=== PATIENT | male | born 1980 | race Caucasian/White ===

== ENCOUNTER 2019-02-17 04:58 | Day surgery (SDC) | payer OTHER ==
[2019-02-16 11:30] VITALS: BMI 31.1
[2019-02-17] MEDS ORDERED: KETOROLAC TROMETHAMINE 30 MG/1 ML VIAL ONE ×2 (08:37→09:49)
[2019-02-17] MEDS ORDERED: DEXAMETHASONE SOD PHOSPHATE 4 MG/1 ML VIAL ONE (08:37)
[2019-02-17] MEDS ORDERED: LIDOCAINE HCL/PF 2% SDV 5ML VIAL ONE (08:37)
[2019-02-17] MEDS ORDERED: MIDAZOLAM HCL 2 MG/2 ML SINGLE DOSE VIAL ONE (08:38)
[2019-02-17] MEDS ORDERED: PROPOFOL 20 ML ONE ×3 (08:38→09:50)
--- NOTE | 2019-02-17 09:01 | HP ---
[facility] - Chief Complaint Chief Complaint: right knee pain History Source: Patient - Past Medical History Allergies/Adverse Reactions: Allergies Allergy/AdvReac Type Severity Reaction Status Date / Time Penicillins Allergy Intermediate Hives Verified 02/17/19 08:44 - Current Medications Current Medications: Home Medications Medication Instructions Recorded Ibuprofen 800 mg PO DAILY 02/16/19 Ranitidine HCl [Zantac] 150 mg PO DAILY 02/16/19 [facility]ellite Physical Exam - Physical Examination Vital Signs: Vital Signs Period Temp Pulse Resp BP Sys/Junior Pulse Ox Last 24 Hr 98.2 F 78 18 133/67 95 Extremities: Other (+ right knee joint line tenderness) [facility] Impression/Plan - Impression/Plan Impression: internal derangement right knee Operative Procedure: arthroscopy right knee Date to be Performed: 02/17/19
[2019-02-17] MEDS ORDERED: LIDOCAINE 1%-EPI 1:100,000 30 ML MDV IJ ONE (09:08)
[2019-02-17] MEDS ORDERED: ONDANSETRON 4 MG/2 ML VIAL IVPUSH PRN (09:50)
[2019-02-17] MEDS ORDERED: oxyCODONE HCL 5 MG TABLET PO PRN (09:50)
[2019-02-17] MEDS ORDERED: LIDOCAINE 1%/EPI 1:100000 (20 ML MULTI DOSE VIAL) IJ ONE ×3 (09:55→10:05)
[2019-02-17] MEDS ORDERED: LACTATED RINGERS SOLUTION 1,000 ML IV SCH (10:00)
[2019-02-17] MEDS ORDERED: BUPIVACAINE HCL/PF 0.5% (5 MG/ML) 30 ML VIAL IJ ONE ×3 (10:05)
--- NOTE | 2019-02-17 10:06 | OP ---
Operative Note - Note: Operative Date: 02/17/19 ([facility]) Pre-Operative Diagnosis: right knee internal derangement Operation: right knee arthroscopy with PMM Post-Operative Diagnosis: Same as Pre-op Surgeon: Trey Farris Anesthesiologist/SUPERVISOR TILE AND MOTTLE: Gabe Blackwell Anesthesia: General, Local Specimens Removed: shavings Estimated Blood Loss (mls): 5 Operative Report Dictated: Yes
[2019-02-17 12:49] VITALS: TEMP 97.6
--- NOTE | 2019-02-17 13:03 | SPEC ---
DATE OF OPERATION: 02/17/2019 PREOPERATIVE DIAGNOSIS: Internal derangement, right knee. POSTOPERATIVE DIAGNOSIS: Internal derangement, right knee. PROCEDURE: Right knee arthroscopy, partial medial meniscectomy. SURGICAL ATTENDING: Trey Farris MD ANESTHESIA: General with LMA. CLOSURE: 4-0 nylon. COMPLICATIONS: None. CONDITION: To recovery room in stable condition. DESCRIPTION OF OPERATIVE PROCEDURE: Patient was taken to the operating room on February 17, 2019. General anesthesia with LMA was administered by the anesthesiologist. The right lower extremity was prepped and draped in the usual sterile fashion. The medial and lateral infrapatellar portal sites were infiltrated with 1% Xylocaine with epinephrine. Both portals were then made with a 15 blade followed by a blunt trocar. The scope was placed in the lateral infrapatellar portal and up into the suprapatellar pouch. The knee was inflated with a cocktail of 10 mL of 1% Xylocaine, 10 mL of 0.5% Marcaine, and 20 mL of arthroscopic saline. This was allowed to sit in the knee for a few minutes to allow the anesthetic to work intraarticularly. The scope was placed in the lateral infrapatellar portal and up into the suprapatellar pouch. The pouch was visualized to be clean. The medial and lateral gutters were visualized to be clean. The undersurface of the patella and trochlea were visualized to be intact. With valgus stress on the knee, the medial compartment was entered. The medial meniscus was visualized, probed, and found to have a complex tear of the posterior horn. This was debrided back to smooth stable meniscal tissue using a meniscal biter and arthroscopic shaver. The medial femoral condyle was run and found to be intact as well as the medial tibial plateau. At 90 degrees, the ACL was visualized, probed, and found to be intact. In the figure 4 position, the lateral compartment was entered. The lateral meniscus was visualized, probed, and found to be intact. The lateral femoral condyle was run and found to be intact as was the lateral tibial plateau. The knee was irrigated with copious amounts of irrigation and then the fluid was drained. The inferomedial portal was closed then with 4-0 nylon. Prior to pulling the trocar from the lateral infrapatellar portal, 20 mL of 0.5% Marcaine was infused into the knee for postoperative analgesia. The trocar was then pulled and the incision was closed with 4-0 nylon suture. A sterile pressure dressing was applied. Patient awakened from anesthesia and transferred to recovery in stable condition. No complication. Estimated blood loss negligible. TREY FARRIS M.D. [id number]
[2019-02-17 13:22] VITALS: BP 104/62; PULSE 60
--- NOTE | 2019-02-19 20:22 | PATH ---
Surgical Pathology Report Patient Name: TIMO GARCIA Med. Rec. #: [id number] /Age/Gender: 1980 (Age: 38) / M Account: [id number] Location: [facility] SURGICAL Taken: 02/17/2019 Received: 02/17/2019 Reported: 02/19/2019 Physicians: Trey Farris M.D. Specimen(s) Received RIGHT KNEE SHAVINGS Clinical History Right knee tear Final Diagnosis RIGHT KNEE SHAVINGS: FRAGMENTS OF CARTILAGE AND SYNOVIAL TISSUE WITH FOCAL DEGENERATIVE CHANGE. Electronically Signed Elida Moore M.D. Gross Description Received in formalin, labeled "right knee shavings," is a 3.5 x 2.5 x 0.3 cm. aggregate of mulligan-yellow soft tissue fragments. A quality control representative portion is submitted in one cassette. /02/18/2019 saudi02/18/2019
== END 2019-02-17 13:25 | disposition home or self-care (01) ==
LOC: JASU-SURG 04:58
PROVIDERS: ATTEND Orthopaedic Surgery
PROC: 0SBC4ZZ Excision of Right Knee Joint, Percutaneous Endoscopic Approach (ICD-10-PCS; principal; 2019-02-17 10:00)
DX: M23.221 Derangement of posterior horn of medial meniscus due to old tear or injury, right knee (principal)
CPT/HCPCS: 88304-TC; 94760